=== PATIENT | male | born 1950 | race Caucasian/White ===

== ENCOUNTER → 2021-05-03 | Outpatient (CLI) | payer BC ==
[~2021-05-03] MED LIST: ARTHRITIS MEDICATION; ELIQUIS 5MG PO; FLOMAX 0.40.4 MG/CAP PO; MIRALAX238G PO
== END ==
LOC: COL.RAD 14:37
DX: I70.201 Unspecified atherosclerosis of native arteries of extremities, right leg (principal)
CPT/HCPCS: J7050; Q9967

== ENCOUNTER → 2022-08-28 | Outpatient (CLI) | payer BC | LOC: COL.RAD 08-07 10:30 | DX: Z01.818 Encounter for other preprocedural examination (principal); M17.12 Unilateral primary osteoarthritis, left knee; Z86.718 Personal history of other venous thrombosis and embolism ==

== ENCOUNTER → 2023-08-12 | Outpatient (CLI) | payer BC ==
[~2023-08-12] MED LIST changes: +ASPIRIN E.C. 8181 MG PO; +COZAAR 50MG50 MG/TAB PO; +LIPITOR 10MG10 MG PO; +PLAVIX 75MG TAB75 MG PO
== END ==
LOC: COL.RAD 06:47
DX: R91.1 Solitary pulmonary nodule (principal)

== ENCOUNTER → 2023-09-09 | Outpatient (CLI) | payer BC | LOC: COL.RAD 09:23 | DX: M51.34 Other intervertebral disc degeneration, thoracic region (principal) ==